=== PATIENT | female | born 1990 | race African-American/Black ===

== ENCOUNTER 2024-07-12 14:46 | Emergency (ER) | payer MEDICAID ==
[~2024-07-12] VITALS: Ht 172.7 cm; Wt 140.0 kg
[2024-07-12 14:54] VITALS: O2SAT 99
[2024-07-12] MEDS: ACETAMINOPHEN 325MG TABLET PO ONE (15:34)
[2024-07-12] MEDS: IBUPROFEN 800MG TABLET PO ONE (15:34)
[2024-07-12 16:47] LABS: BASOPHILS % 0.3 % (0.0-2.0); EOSINOPHILS % 1.5 % (0.0-5.0); HEMATOCRIT. 38.7 % (36.0-48.0); HEMOGLOBIN. 12.7 g/dL (12.0-16.0); LYMPHOCYTES % 22.8 % (20.0-50.0); MEAN CORPUSCULAR HEMOGLOBIN 26.7 pg (28.0-32.0); MEAN CORPUSCULAR HGB CONC 32.7 g/dL (31.0-37.0); MEAN CORPUSCULAR VOLUME 81.6 fL (81.0-99.0); MEAN PLATELET VOLUME 8.2 fl (7.4-10.4); NEUTROPHILS % 71.4 % (40.0-76.0); PLATELET 240 x1000/uL (130-400); RED BLOOD CELL COUNT 4.74 mill/uL (4.2-5.4); WHITE BLOOD COUNT 10.6 x1000/uL (4.5-11.0)
[2024-07-12 16:54] LABS: CHLORIDE 105 mEq/L (98-107); SODIUM 138 mEq/L (136-145)
[2024-07-12 16:55] LABS: CARBON DIOXIDE 30 mEq/L (21-32)
[2024-07-12 16:56] LABS: CALCIUM 9.3 mg/dL (8.7-10.4)
[2024-07-12 17:00] LABS: CREATININE 0.8 mg/dL (0.6-1.0); GLUCOSE 85 mg/dL (70-105); UREA NITROGEN BLOOD 7 mg/dL (9-23)
[2024-07-12] MEDS: LORAZEPAM 1MG TABLET PO ONE (17:05)
[2024-07-12 17:06] VITALS: TEMP 37.16964
[2024-07-12 19:39] LABS: HCG SCREEN NEGATIVE
[2024-07-12] MEDS ORDERED: IBUP-1525 MT (22:54)
[2024-07-12] MEDS ORDERED: CYCL10TA21 MT (22:54)
[2024-07-12] MEDS ORDERED: TOPUD MT (22:54)
[2024-07-12 23:15] VITALS: BP 139/95; PULSE 88; RESP 16; O2SAT 98
== END 2024-07-13 00:07 | disposition home or self-care (01) ==
LOC: ER 14:46
DX: M54.9 Dorsalgia, unspecified (principal)
CPT/HCPCS: 80048; 84703; 85025; 36415; 74176; 99285; Z7610